=== PATIENT | female | born 1950 | race American Indian/Alaskan Native ===

== ENCOUNTER 2017-02-12 20:22 | Emergency (ER) | payer MEDICARE, MEDICAID ==
[2017-02-12 23:26] LABS: Basophils % (Auto) 0.6 % (0.0-1.8); Eosinophils % (Auto) 1.9 % (0.0-4.3); Hematocrit 41.4 % (30.3-42.9); Hemoglobin 13.5 gm/dl (10.1-14.3); Mean Corpuscular HGB Conc 33 % (30-34); Mean Corpuscular Hemoglobin 29 pg (28-32); Mean Corpuscular Volume 88 fl (79-97); Platelet Count 216 K/mm3 (140-440); Red Blood Count 4.72 M/mm3 (3.65-5.03); Red Cell Distribution Width 14.6 % (13.2-15.2); White Blood Count 9.3 K/mm3 (4.5-11.0)
[2017-02-12 23:38] LABS: Calcium 9.3 mg/dL (8.4-10.2); Chloride 96.5 mmol/L (98-107); Potassium 4.1 mmol/L (3.6-5.0)
[2017-02-13] MEDS ORDERED: NACL 0.9% 1000 ML 1,000 ML IV ONE (00:19)
[2017-02-13] MEDS ORDERED: ZOFRAN IV ONE (00:19)
--- NOTE | 2017-02-13 00:24 | Emergency Department Report ---
ED General Adult HPI - General Chief complaint: Hyperglycemia Stated complaint: ELEVATED BLOOD SUGAR Time Seen by Provider: 02/13/17 00:14 Source: patient Mode of arrival: Ambulatory Limitations: No Limitations - History of Present Illness Initial comments: 66-year-old female with a past medical history of diabetes, hypertension, elevated cholesterol presents to the hospital complains of elevated glucose today. Patient noticed that her sugar was in the 400s when she checked about 7 PM this evening. She rechecked it and it just read high. Patient has been compliant with her NovoLog 70/30, 42 units every morning. She denies taking any other diabetes medication. She complained of headache, blurred vision, and increased urinary frequency. Patient is pain-free at this time. No reports of nausea, vomiting, fever, or dysuria Severity scale (0 -10): 0 - Related Data Home Medications Medication Instructions Recorded Confirmed Last Taken Losartan/Hydrochlorothiazide 1 each PO QDAY 01/17/15 02/13/17 02/13/17 [Hyzaar 100-12.5] Insulin Aspart Protam & Aspart 42 units SQ QAM 02/13/17 02/13/17 02/13/17 [NovoLOG Mix 70-30 Flexpen] Meclizine [Antivert] 25 mg PO TID PRN 02/13/17 02/13/17 02/13/17 Previous Rx's Medication Instructions Recorded Last Taken Type Glimepiride [Amaryl] 2 mg PO DAILY #30 tablet 02/13/17 Unknown Rx Allergies Allergy/AdvReac Type Severity Reaction Status Date / Time shellfish derived Allergy Swelling Verified 01/19/15 09:59 ED Review of Systems ROS: Stated complaint: ELEVATED BLOOD SUGAR Other details as noted in HPI Comment: All other systems reviewed and negative Other: Constitutional: No fevers chills Eyes: No eye pain visual changes ENT: No ear pain or throat pain Neck: Denies pain Respiratory: Denies cough wheezing shortness of breath Cardiovascular: Denies chest pain, palpitations, syncope GI: Denies abdominal pain, nausea, vomiting, diarrhea : Denies dysuria Musculoskeletal: Denies back pain Skin: Denies rash, lesions, erythema Neurologic: Denies headache, numbness, weakness ED Past Medical Hx - Past Medical History Hx Hypertension: Yes Hx Congestive Heart Failure: No Hx Diabetes: Yes Hx Renal Disease: No Hx Asthma: No Hx COPD: No Hx HIV: No Additional medical history: high cholestrol, vertigo. neuropathy - Surgical History Additional Surgical History: partial hysterectomy - Social History Smoking Status: Never Smoker Substance Use Type: None - Medications Home Medications: Home Medications Medication Instructions Recorded Confirmed Last Taken Type Losartan/Hydrochlorothiazide 1 each PO QDAY 01/17/15 02/13/17 02/13/17 History [Hyzaar 100-12.5] Glimepiride [Amaryl] 2 mg PO DAILY #30 tablet 02/13/17 Unknown Rx Insulin Aspart Protam & Aspart 42 units SQ QAM 02/13/17 02/13/17 02/13/17 History [NovoLOG Mix 70-30 Flexpen] Meclizine [Antivert] 25 mg PO TID PRN 02/13/17 02/13/17 02/13/17 History ED Physical Exam - General Limitations: No Limitations - Other Other exam information: General: No limitations Head exam: Atraumatic, normocephalic Eyes exam: Normal appearance ENT: Moist mucous membrane, normal oropharynx Neck exam: Normal inspection, full range of motion Respiratory exam: Clear to auscultation bilateral, no wheezes, rales, crackles Cardiovascular: Normal rate and rhythm, normal heart sounds Abdomen: Soft, nondistended, and nontender, with normal bowel sounds, no rebound, or guarding Extremity: Full range of motion normal inspection no deformity Back: Normal Inspection, full range of motion, no tenderness Neurologic: Alert, oriented x3, cranial nerves intact, no motor or sensory deficit Psychiatric: normal affect, normal mood Skin: Warm, dry, intact ED Course Vital Signs 02/12/17 02/13/17 02/13/17 22:48 00:15 00:20 Temperature 98.2 F Pulse Rate 76 74 78 Respiratory 18 15 19 Rate Blood Pressure 166/107 145/72 Blood Pressure 166/107 [Left] O2 Sat by Pulse 100 97 Oximetry 02/13/17 02/13/17 02/13/17 00:30 00:40 00:50 Temperature Pulse Rate 67 77 74 Respiratory 14 11 L 20 Rate Blood Pressure 124/58 124/58 121/58 Blood Pressure [Left] O2 Sat by Pulse 94 91 95 Oximetry 02/13/17 02/13/17 02/13/17 01:00 01:10 01:20 Temperature Pulse Rate 79 80 73 Respiratory 13 14 17 Rate Blood Pressure 134/56 134/56 123/41 Blood Pressure [Left] O2 Sat by Pulse 96 97 99 Oximetry 02/13/17 02/13/17 02/13/17 01:30 01:40 01:50 Temperature Pulse Rate 74 73 70 Respiratory 18 16 15 Rate Blood Pressure 131/64 131/64 136/66 Blood Pressure [Left] O2 Sat by Pulse 97 97 96 Oximetry - Reevaluation(s) Reevaluation #1: 02/13/17 00:27 Insulin and normal saline ordered ED Medical Decision Making - Lab Data Result diagrams: 02/12/17 23:02 02/12/17 23:02 Lab Results 02/12/17 02/12/17 02/12/17 Range/Units 21:50 22:45 23:02 WBC 9.3 (4.5-11.0) K/mm3 RBC 4.72 (3.65-5.03) M/mm3 Hgb 13.5 (10.1-14.3) gm/dl Hct 41.4 (30.3-42.9) % MCV 88 (79-97) fl MCH 29 (28-32) pg MCHC 33 (30-34) % RDW 14.6 (13.2-15.2) % Plt Count 216 (140-440) K/mm3 Lymph % (Auto) 40.0 H (13.4-35.0) % [place] % (Auto) 7.6 H (0.0-7.3) % Eos % (Auto) 1.9 (0.0-4.3) % Baso % (Auto) 0.6 (0.0-1.8) % Lymph # 3.7 (1.2-5.4) K/mm3 [place] # 0.7 (0.0-0.8) K/mm3 Eos # 0.2 (0.0-0.4) K/mm3 Baso # 0.1 (0.0-0.1) K/mm3 Seg Neutrophils % 49.9 (40.0-70.0) % Seg Neutrophils # 4.6 (1.8-7.7) K/mm3 VBG pH (7.320-7.420) Sodium (137-145) mmol/L Potassium (3.6-5.0) mmol/L Chloride (98-107) mmol/L Carbon Dioxide (22-30) mmol/L Anion Gap mmol/L BUN (7-17) mg/dL Creatinine (0.7-1.2) mg/dL Estimated GFR ml/min BUN/Creatinine Ratio % Glucose (65-100) mg/dL POC Glucose 384 H (70-105) Calcium (8.4-10.2) mg/dL Urine Color Straw (Yellow) Urine Turbidity Clear (Clear) Urine pH 6.0 (5.0-7.0) Ur Specific Reading 1.010 (1.003-1.030) Urine Protein <15 mg/dl (Negative) mg/dL Urine Glucose (UA) >=500 (Negative) mg/dL Urine Ketones Neg (Negative) mg/dL Urine Blood Neg (Negative) Urine Nitrite Neg (Negative) Urine Bilirubin Neg (Negative) Urine Urobilinogen < 2.0 (<2.0) mg/dL Ur Leukocyte Esterase Neg (Negative) Urine WBC (Auto) 1.0 (0.0-6.0) /HPF Urine RBC (Auto) 1.0 (0.0-6.0) /HPF U Epithel Cells (Auto) 2.0 (0-13.0) /HPF 02/12/17 02/12/17 02/13/17 Range/Units 23:02 23:02 00:27 WBC (4.5-11.0) K/mm3 RBC (3.65-5.03) M/mm3 Hgb (10.1-14.3) gm/dl Hct (30.3-42.9) % MCV (79-97) fl MCH (28-32) pg MCHC (30-34) % RDW (13.2-15.2) % Plt Count (140-440) K/mm3 Lymph % (Auto) (13.4-35.0) % [place] % (Auto) (0.0-7.3) % Eos % (Auto) (0.0-4.3) % Baso % (Auto) (0.0-1.8) % Lymph # (1.2-5.4) K/mm3 [place] # (0.0-0.8) K/mm3 Eos # (0.0-0.4) K/mm3 Baso # (0.0-0.1) K/mm3 Seg Neutrophils % (40.0-70.0) % Seg Neutrophils # (1.8-7.7) K/mm3 VBG pH 7.305 L (7.320-7.420) Sodium 134 L (137-145) mmol/L Potassium 4.1 (3.6-5.0) mmol/L Chloride 96.5 L (98-107) mmol/L Carbon Dioxide 23 (22-30) mmol/L Anion Gap 19 mmol/L BUN 18 H (7-17) mg/dL Creatinine 1.2 (0.7-1.2) mg/dL Estimated GFR 55 ml/min BUN/Creatinine Ratio 15.00 % Glucose 394 H (65-100) mg/dL POC Glucose 376 H (70-105) Calcium 9.3 (8.4-10.2) mg/dL Urine Color (Yellow) Urine Turbidity (Clear) Urine pH (5.0-7.0) Ur Specific Reading (1.003-1.030) Urine Protein (Negative) mg/dL Urine Glucose (UA) (Negative) mg/dL Urine Ketones (Negative) mg/dL Urine Blood (Negative) Urine Nitrite (Negative) Urine Bilirubin (Negative) Urine Urobilinogen (<2.0) mg/dL Ur Leukocyte Esterase (Negative) Urine WBC (Auto) (0.0-6.0) /HPF Urine RBC (Auto) (0.0-6.0) /HPF U Epithel Cells (Auto) (0-13.0) /HPF 02/13/17 Range/Units 01:43 WBC (4.5-11.0) K/mm3 RBC (3.65-5.03) M/mm3 Hgb (10.1-14.3) gm/dl Hct (30.3-42.9) % MCV (79-97) fl MCH (28-32) pg MCHC (30-34) % RDW (13.2-15.2) % Plt Count (140-440) K/mm3 Lymph % (Auto) (13.4-35.0) % [place] % (Auto) (0.0-7.3) % Eos % (Auto) (0.0-4.3) % Baso % (Auto) (0.0-1.8) % Lymph # (1.2-5.4) K/mm3 [place] # (0.0-0.8) K/mm3 Eos # (0.0-0.4) K/mm3 Baso # (0.0-0.1) K/mm3 Seg Neutrophils % (40.0-70.0) % Seg Neutrophils # (1.8-7.7) K/mm3 VBG pH (7.320-7.420) Sodium (137-145) mmol/L Potassium (3.6-5.0) mmol/L Chloride (98-107) mmol/L Carbon Dioxide (22-30) mmol/L Anion Gap mmol/L BUN (7-17) mg/dL Creatinine (0.7-1.2) mg/dL Estimated GFR ml/min BUN/Creatinine Ratio % Glucose (65-100) mg/dL POC Glucose 264 H (70-105) Calcium (8.4-10.2) mg/dL Urine Color (Yellow) Urine Turbidity (Clear) Urine pH (5.0-7.0) Ur Specific Reading (1.003-1.030) Urine Protein (Negative) mg/dL Urine Glucose (UA) (Negative) mg/dL Urine Ketones (Negative) mg/dL Urine Blood (Negative) Urine Nitrite (Negative) Urine Bilirubin (Negative) Urine Urobilinogen (<2.0) mg/dL Ur Leukocyte Esterase (Negative) Urine WBC (Auto) (0.0-6.0) /HPF Urine RBC (Auto) (0.0-6.0) /HPF U Epithel Cells (Auto) (0-13.0) /HPF - Medical Decision Making Glucose is trending downward with ED treatment. No signs of DKA. Case briefly discussed with Dr. Power hospitalist in regards to appropriate medication adjustment. He suggests glimepiride 2 milligrams with meals in the afternoon and continue her current insulin. BP improved spontaneously and with out ed treatment - Differential Diagnosis DKA, infection, uncontrolled diabetes, hyperglycemia Critical Care Time: No Critical care attestation.: If time is entered above; I have spent that time in minutes in the direct care of this critically ill patient, excluding procedure time. ED Disposition Clinical Impression: Hyperglycemia, Uncontrolled diabetes mellitus Disposition: DISCHARGED TO HOME OR SELFCARE Is pt being admited?: Yes Condition: Stable Instructions: Diabetes Mellitus Type 2 in Adults (ED) Additional Instructions: Continue to monitor your glucose very closely. We have added an additional medication to help with better blood sugar control. There is a risk of overcorrection and low blood sugar associated with starting a new diabetes medication. Follow up with your doctor for further adjustment. Return if symptoms worsen. Prescriptions: Glimepiride [Amaryl] 2 mg PO DAILY #30 tablet Referrals: PRIMARY CARE, [Primary Care Provider] - 2-3 Days Time of Disposition: 02:13
[2017-02-13 00:54] LABS: Bilirubin,Urine NEG (Negative); Blood,Urine NEG (Negative); Ketones,Urine NEG (Negative); Leukocyte Esterase,Urine NEG (Negative); Nitrite,Urine NEG (Negative); Protein,Urine <15 mg/dL mg/dL (Negative); Urobilinogen,Urine < 2.0 mg/dL (<2.0)
[2017-02-13 02:18] VITALS: BP 128/67
== END 2017-02-13 02:37 | disposition home or self-care (01) ==
LOC: ED 20:22
DX: E11.65 Type 2 diabetes mellitus with hyperglycemia (principal); I10 Essential (primary) hypertension; E78.00 Pure hypercholesterolemia, unspecified; Z91.013 Allergy to seafood; Z79.4 Long term (current) use of insulin
CPT/HCPCS: 36415; 80048; 81001; 82010; 82805; 82962; 85025; 96361; 96374; 96375; 99284; J2405; J7030; J1815

== ENCOUNTER 2017-07-18 16:31 | Emergency (ER) | payer MEDICARE ==
[2017-07-18 17:13] LABS: Basophils % (Auto) 0.9 % (0.0-1.8); Eosinophils % (Auto) 2.1 % (0.0-4.3); Hematocrit 40.8 % (30.3-42.9); Hemoglobin 13.7 gm/dl (10.1-14.3); Mean Corpuscular HGB Conc 34 % (30-34); Mean Corpuscular Hemoglobin 29 pg (28-32); Mean Corpuscular Volume 86 fl (79-97); Platelet Count 209 K/mm3 (140-440); Red Blood Count 4.74 M/mm3 (3.65-5.03); Red Cell Distribution Width 14.1 % (13.2-15.2); White Blood Count 9.1 K/mm3 (4.5-11.0)
[2017-07-18 17:27] LABS: BUN/Creatinine Ratio 16.92; Calcium 8.8 mg/dL (8.4-10.2); Chloride 93.4 mmol/L (98-107); Potassium 4.2 mmol/L (3.6-5.0)
[2017-07-18] MEDS ORDERED: NACL 0.9% 1000 ML 1,000 ML IV ONE (23:17)
--- NOTE | 2017-07-18 23:17 | Emergency Department Report ---
ED General Adult HPI - General Chief complaint: Hyperglycemia Stated complaint: HYPERGLYCEMIA Time Seen by Provider: 07/18/17 23:07 Source: patient Mode of arrival: Ambulatory Limitations: No Limitations - History of Present Illness Initial comments: 66 years old female coming in with the main complain of hyperglycemia, she stated that she checked her blood sugar this morning and it was 568. Patient denied any cough fever or nausea or vomiting, she reported that she's been using bathroom a lot for urine. Patient denied any chest pain or shortness of breath. -: This morning Associated Symptoms: denies other symptoms - Related Data Home Medications Medication Instructions Recorded Confirmed Last Taken Losartan/Hydrochlorothiazide 1 each PO QDAY 01/17/15 02/13/17 02/13/17 [Hyzaar 100-12.5] Insulin Aspart Protam & Aspart 42 units SQ QAM 02/13/17 02/13/17 02/13/17 [NovoLOG Mix 70-30 Flexpen] Meclizine [Antivert] 25 mg PO TID PRN 02/13/17 02/13/17 02/13/17 Previous Rx's Medication Instructions Recorded Last Taken Type Glimepiride [Amaryl] 2 mg PO DAILY #30 tablet 02/13/17 Unknown Rx Fluconazole [Diflucan TAB] 150 mg PO ONCE #1 tablet 07/19/17 Unknown Rx Levofloxacin [Levaquin TAB] 500 mg PO QDAY #7 tablet 07/19/17 Unknown Rx Ondansetron [Zofran Odt] 4 mg PO Q8HR PRN #14 tab.rapdis 07/19/17 Unknown Rx traMADol [Ultram 50 MG tab] 50 mg PO Q4HR PRN #14 tablet 07/19/17 Unknown Rx Allergies Allergy/AdvReac Type Severity Reaction Status Date / Time shellfish derived Allergy Swelling Verified 01/19/15 09:59 ED Review of Systems ROS: Stated complaint: HYPERGLYCEMIA Other details as noted in HPI Comment: All other systems reviewed and negative Constitutional: denies: chills, fever Respiratory: denies: cough, shortness of breath Cardiovascular: denies: chest pain, palpitations Gastrointestinal: denies: abdominal pain, nausea, vomiting Genitourinary: urgency, dysuria, frequency Musculoskeletal: denies: back pain Neurological: denies: headache, weakness ED Past Medical Hx - Past Medical History Previous Medical History?: Yes Hx Hypertension: Yes Hx Congestive Heart Failure: No Hx Diabetes: Yes Hx Renal Disease: No Hx Asthma: No Hx COPD: No Hx HIV: No Additional medical history: high cholestrol, vertigo. neuropathy - Surgical History Past Surgical History?: Yes Additional Surgical History: partial hysterectomy - Social History Smoking Status: Never Smoker Substance Use Type: None - Medications Home Medications: Home Medications Medication Instructions Recorded Confirmed Last Taken Type Losartan/Hydrochlorothiazide 1 each PO QDAY 01/17/15 02/13/17 02/13/17 History [Hyzaar 100-12.5] Glimepiride [Amaryl] 2 mg PO DAILY #30 tablet 02/13/17 Unknown Rx Insulin Aspart Protam & Aspart 42 units SQ QAM 02/13/17 02/13/17 02/13/17 History [NovoLOG Mix 70-30 Flexpen] Meclizine [Antivert] 25 mg PO TID PRN 02/13/17 02/13/17 02/13/17 History Fluconazole [Diflucan TAB] 150 mg PO ONCE #1 tablet 07/19/17 Unknown Rx Levofloxacin [Levaquin TAB] 500 mg PO QDAY #7 tablet 07/19/17 Unknown Rx Ondansetron [Zofran Odt] 4 mg PO Q8HR PRN #14 tab.rapdis 07/19/17 Unknown Rx traMADol [Ultram 50 MG tab] 50 mg PO Q4HR PRN #14 tablet 07/19/17 Unknown Rx ED Physical Exam - General Limitations: No Limitations General appearance: alert, in no apparent distress - Head Head exam: Present: normocephalic - Eye Eye exam: Present: normal appearance - ENT ENT exam: Present: normal exam - Neck Neck exam: Present: normal inspection - Respiratory Respiratory exam: Present: normal lung sounds bilaterally - Cardiovascular Cardiovascular Exam: Present: regular rate, normal rhythm, normal heart sounds - GI/Abdominal GI/Abdominal exam: Present: soft. Absent: distended, tenderness, guarding, rebound, rigid - Back Exam Back exam: Present: normal inspection. Absent: CVA tenderness (R), CVA tenderness (L) - Neurological Exam Neurological exam: Present: alert, oriented X3, CN II-XII intact, normal gait - Skin Skin exam: Present: warm, intact ED Course Vital Signs 07/18/17 07/19/17 07/19/17 16:37 01:43 02:13 Temperature 97.9 F Pulse Rate 90 Respiratory 16 18 16 Rate Blood Pressure 125/60 O2 Sat by Pulse 97 Oximetry 07/19/17 05:15 Temperature Pulse Rate Respiratory Rate Blood Pressure 114/45 O2 Sat by Pulse 95 Oximetry ED Medical Decision Making - Lab Data Result diagrams: 07/18/17 16:55 07/18/17 16:55 Critical care attestation.: If time is entered above; I have spent that time in minutes in the direct care of this critically ill patient, excluding procedure time. ED Disposition Clinical Impression: Hyperglycemia, UTI (urinary tract infection) Disposition: DC-01 TO HOME OR SELFCARE Is pt being admited?: No Condition: Stable Instructions: Diabetic Hyperglycemia (ED), Urinary Tract Infection in Women (ED ) Referrals: PRIMARY CARE, [Primary Care Provider] - 3-5 Days
[2017-07-19] MEDS ORDERED: MORPHINE IV ONE (00:45)
[2017-07-19] MEDS ORDERED: ZOFRAN IV ONE (00:45)
[2017-07-19 00:56] LABS: Bacteria,Urine 2+ /HPF (Negative); Bilirubin,Urine NEG (Negative); Blood,Urine MOD (Negative); Ketones,Urine NEG (Negative); Leukocyte Esterase,Urine LG (Negative); Nitrite,Urine NEG (Negative); Protein,Urine <15 mg/dL mg/dL (Negative)
[2017-07-19] MEDS ORDERED: ROCEPHIN/NS 1 GM/50 ML 1 GM/50 ML BAG IV ONE ×2 (01:14→05:23)
[2017-07-19 06:18] VITALS: BP 111/60
== END 2017-07-19 06:14 | disposition home or self-care (01) ==
LOC: ED 16:31
DX: E11.65 Type 2 diabetes mellitus with hyperglycemia (principal); N39.0 Urinary tract infection, site not specified; I10 Essential (primary) hypertension
CPT/HCPCS: 36415; 80048; 81001; 82805; 82962; 85025; 96361; 96365; 96375; 96376; 99284; J0696; J2270; J2405; J7030; J1815